=== PATIENT | female | born 1975 | race Caucasian/White ===

== ENCOUNTER 2018-01-08 16:01 | Inpatient (IN) | payer MEDICAID ==
--- NOTE | 2018-01-08 16:45 | ED Physician Chart ---
ED Chief Complaint/HPI - Patient Information Date Seen:: 01/08/18 Time Seen:: 16:30 Chief Complaint:: hemoptysis History of Present Illness:: Patient has had cough and blood-streaked sputum since last night. She filled up a Kleenex with blood last night and the hemoptysis is less today. No chills or fever. Allergies:: Allergies Allergy/AdvReac Type Severity Reaction Status Date / Time No Known Allergies Allergy Verified 01/08/18 16:11 Vitals:: Vital Signs - 8 hr 01/08/18 16:12 Temp 98.2 F HR 65 RR 16 BP 125/70 O2 Sat % 99 Historian:: Patient, Family Member Review:: Nurse's Note Reviewed ED Review of Systems - Review of Systems General/Constitutional: No fever, No chills Skin: No skin lesions Head: No headache Eyes: No loss of vision ENT: No earache Neck: No neck pain, No swelling Cardio Vascular: No chest pain, No palpitations Pulmonary: Sputum, Other (hemoptysis) GI: No nausea, No vomiting, No diarrhea G/U: No dysuria Musculoskeletal: No bone or joint pain Endocrine: No polyuria, No polydipsia Psychiatric: No prior psych history, No depression Hematopoietic: No bruising Allergic/Immuno: No urticaria Neurological: No syncope ED Physical Exam - Physical Examination General/Constitutional: Awake, Well-developed, well-nourished, Alert, No distress, GCS 15, Non-toxic appearing, Ambulatory Head: Atraumatic Eyes: Lids, conjuctiva normal, PERRL, EOMI Skin: Nl inspection, No rash, No skin lesions, No ecchymosis, Well hydrated, No lymphadenopathy ENMT: External ears, nose nl, Nasal exam nl, Lips, teeth, gums nl Neck: Nontender, Full ROM w/o pain, No JVD, No nuchal rigidity, No bruit, No mass, No stridor Respiratory: Nl effort/Exclusion, Clear to Auscultation, No Wheeze/Rhonchi/Rales Cardio Vascular: RRR, No murmur, gallop, rubs, NL S1 S2 GI: No tenderness/rebounding/guarding, No organomegaly, No hernia, Normal BS's, Nondistended, No mass/bruits, No McBurney tenderness : No CVA tenderness Extremities: No tenderness or effusion, Full ROM, normal strength in all extremities, No edema, Normal digits & nails Neuro/Psych: Alert/oriented, DTR's symmetric, Normal sensory exam, Normal motor strength, Judgement/insight normal, Mood normal, Normal gait, No focal deficits Misc: Normal back, No paraspinal tenderness ED Labs/Radiology/EKG Results - Lab Results Results: Abnormal Lab Results 01/08/18 01/08/18 16:30 16:50 WBC 4.9 RBC 4.91 Hgb 14.0 Hct 41.5 MCV 84.6 MCH 28.5 MCHC Differential 33.7 RDW 12.8 Plt Count 131 L MPV 8.5 Neutrophils % 52.2 Lymphocytes % 36.8 Monocytes % 9.0 Eosinophils % 1.9 Basophils % 0.1 Urine Test NEGATIVE Abnormal Lab Results 01/08/18 01/08/18 01/08/18 16:30 16:50 16:50 WBC 4.9 RBC 4.91 Hgb 14.0 Hct 41.5 MCV 84.6 MCH 28.5 MCHC Differential 33.7 RDW 12.8 Plt Count 131 L MPV 8.5 Neutrophils % 52.2 Lymphocytes % 36.8 Monocytes % 9.0 Eosinophils % 1.9 Basophils % 0.1 Sodium 139 Potassium 4.1 Chloride 105 Carbon Dioxide 26.3 Anion Gap 11.8 BUN 12 Creatinine 0.7 Est GFR ( Amer) > 60.0 Est GFR (Non-Af Amer) > 60.0 BUN/Creatinine Ratio 17.1 Glucose 109 H Calcium 9.8 Urine Test NEGATIVE ED Septic Shock - <6hrs of presentation: Vital Signs: Vital Signs - 8 hr 01/08/18 16:12 Temp 98.2 F HR 65 RR 16 BP 125/70 O2 Sat % 99
[2018-01-08 17:00] LABS: % BASOPHILS 0.1 % (0.0-2.0); % EOSINOPHILS 1.9 % (0.0-5.0); % LYMPHOCYTES 36.8 % (20.0-50.0); % NEUTROPHILS 52.2 % (40.0-80.0); EOSINOPHILE ABSOLUTE 0.1 Th/cmm (0.1-0.4); HEMATOCRIT 41.5 % (41.0-60); LYMPHOCYTE ABSOLUTE 1.8 Th/cmm (1.5-3.0); MEAN CELL VOLUME 84.6 fl (81-100); MEAN CORPUSCULAR HEMOGLOBIN 28.5 pg (27.0-31.0); MEAN CORPUSCULAR HGB CONC 33.7 pg (28.0-36.0); MEAN PLATELET VOLUME 8.5 fl; MONOCYTE ABSOLUTE 0.4 Th/cmm (0.3-1.0); NEUTROPHILE ABSOLUTE 2.6 Th/cmm (1.8-8.0); PLATELET COUNT 131 Th/cmm (150-400); RED BLOOD COUNT 4.91 Mil/cmm (3.80-5.10); RED CELL DISTRIBUTION WIDTH 12.8 % (11.5-20.0); WHITE BLOOD COUNT 4.9 Th/cmm (4.8-10.8)
[2018-01-08 17:40] LABS: ANION GAP 11.8 (7.0-16.0); BUN - UREA NITROGEN 12 mg/dL (7-25); CALCIUM SERUM 9.8 mg/dL (8.6-10.3); CARBON DIOXIDE 26.3 mEq/L (21.0-31.0); CHLORIDE 105 mEq/L (98-107); CREATININE - SERUM 0.7 mg/dL (0.6-1.2); GFR AFRICAN-AMERICAN > 60.0 ml/min (>90); GFR NON AFRICAN-AMERICAN > 60.0 ml/min; GLUCOSE 109 mg/dL (70-105); POTASSIUM SERUM 4.1 mEq/L (3.5-5.1); SODIUM SERUM 139 mEq/L (136-145)
[2018-01-08] MEDS ORDERED: Sodium Chloride 0.9% 1,000 ML IV ONE (17:54)
[2018-01-08] MEDS ORDERED: Azithromycin 500 MG in Sodium Chloride 0.9% 250 ML IV ONE (17:55)
[2018-01-08] MEDS ORDERED: cefTRIAXone 1 GM in Sodium Chloride 0.9% 50 ML IV ONE (17:55)
[2018-01-08] MEDS ORDERED: IOHEXOL 300mgI/mL 100 ML VIAL ONE (18:00)
[2018-01-08 18:19] LABS: PROTHROMBIN TIME (TEST) 10.4 SECONDS (9.5-11.5)
[2018-01-08] MEDS ORDERED: Guaifenesin DM 10 ML UDC PO PRN (20:07)
[2018-01-08 23:13] VITALS: BP 130/70
--- NOTE | 2018-01-09 08:24 | History and Physical ---
History of Present Illness - HPI Chief Complaint: Hemoptysis HPI: 42 y/o female who presents to [facility] ER for hemoptysis started since last night. Denies fever or chills. Patient has a previous history of Hep C+ Her initial chest xray revealed RLL pneumonia. Her initial labwork done in the ER revealed... WBC 4.9 H/H 14.0/41.5 platelets 131 Na 139 K 4.1 Bun/Cr 12/0.7 glu 109 Patient was subsequently admitted for furthe evaluation and treatment. Vital Signs: Last Vital Signs Temp 99.1 F 01/09/18 07:43 Pulse 75 01/09/18 07:43 Resp 17 01/09/18 07:43 BP 99/47 01/09/18 07:43 Pulse Ox 98 01/09/18 07:43 Past Medical History Cardiovascular: Report: No Pertinent Hx Pulmonary: Report: No Pertinent Hx PATIENT ACCESS DIRECTOR: Report: No Pertinent Hx GI: Report: No Pertinent Hx Psych: Report: No Pertinent Hx Musculoskeletal: Report: No Pertinent Hx Rheumatologic: Report: No pertinent Hx Infectious Disease: Report: Other (Hep C) Renal/: Report: No Pertinent Hx Endocrine: Report: No Pertinent Hx Dermatology: Report: No Pertinent Hx - Past Surgical History Past Surgical History: No pertinent Hx Family Medical History - Family Member Mother History Unknown: Yes Ethnicity: Social History Smoke: No Alcohol: None Drugs: None Lives: With Family - Medications Home Medications: Home Medication Medication Instructions Recorded Type NK [No Home Meds] 01/08/18 History - Allergies Allergies/Adverse Reactions: Allergies Allergy/AdvReac Type Severity Reaction Status Date / Time No Known Allergies Allergy Verified 01/08/18 16:11 Review of Systems - Review of Systems Constitutional: Report: No Significant Eyes: Report: No Significant ENT: Report: No Significant Respiratory: Report: Cough, Hemoptysis Cardiovascular: Report: No Significant Gastrointestinal: Report: No Significant Genitourinary: Report: No Significant Musculoskeletal: Report: No Significant Skin: Report: No Significant Neurological: Report: No Significant Physical Exam - Physical Exam HEENT: Report: Ears Nose Throat within normal limits, Pharnyx within normal limits Neck: Report: Within normal limits Cardiovascular Systems: Report: +s1/s2 noted, Regular, Rate and Rhythm Respiratory: Report: Breath Sounds are within normal limits Abdomen: Report: Non-tender to palpation. Denies: Tender to palpation Back: Report: Inspection of back is within normal limits. Extremities: Report: Non-tender to palpation. Skin: Report: Color of skin is within normal limits Neuro/Psych: Report: Mood affect is within normal limits, A+Ox3 - Lab Results All Lab Results last 24 hours: Laboratory Results - last 24 hr 01/08/18 01/08/18 01/08/18 16:30 16:50 16:50 WBC 4.9 RBC 4.91 Hgb 14.0 Hct 41.5 MCV 84.6 MCH 28.5 MCHC Differential 33.7 RDW 12.8 Plt Count 131 L MPV 8.5 Neutrophils % 52.2 Lymphocytes % 36.8 Monocytes % 9.0 Eosinophils % 1.9 Basophils % 0.1 PT 10.4 INR 1.00 PTT (Actin FS) 25.7 L Sodium Potassium Chloride Carbon Dioxide Anion Gap BUN Creatinine Est GFR ( Amer) Est GFR (Non-Af Amer) BUN/Creatinine Ratio Glucose Calcium Urine Test NEGATIVE 01/08/18 16:50 WBC RBC Hgb Hct MCV MCH MCHC Differential RDW Plt Count MPV Neutrophils % Lymphocytes % Monocytes % Eosinophils % Basophils % PT INR PTT (Actin FS) Sodium 139 Potassium 4.1 Chloride 105 Carbon Dioxide 26.3 Anion Gap 11.8 BUN 12 Creatinine 0.7 Est GFR ( Amer) > 60.0 Est GFR (Non-Af Amer) > 60.0 BUN/Creatinine Ratio 17.1 Glucose 109 H Calcium 9.8 Urine Test - Assessment Assessment: Current Active Problems Problem Status Onset COUGH WITH BLOOD STREAKED SPUTUM Acute hemoptysis RLL PNA Hep C+ - Plan Plan: continue IV Rocephin IV fluids CT chest pending repeat CBC,CMP Pulmonary consult.
--- NOTE | 2018-01-09 08:33 | Diagnostic Imaging Report ---
CT Chest with IV contrast HISTORY: Hemoptysis COMPARISON: Chest x-ray the same day. Technique: Axial images were obtained from the base of the neck to the upper abdomen following administration of IV contrast. Coronal reconstructions were made. Total DLP to 36, CTI 6 Findings: There is no evidence of mediastinal lymphadenopathy. The heart size is normal. No pericardial effusion identified. Evaluation of the lungs demonstrate extensive bronchiectasis involving the right lower lobe, greatest medially. A few tree-in-bud infiltrates are also seen primarily within the right lower lobe. No pleural effusions are identified. The upper abdomen demonstrates no acute abnormalities. Degenerative changes of the spine are noted. IMPRESSION: Extensive right lower lobe bronchiectasis and multiple tree in bud infiltrates. Findings favor an infectious/inflammatory process. JOSE GUADALUPE infection should be considered. Clinical correlation and correlation with old exams is recommended. Follow-up is also needed.
--- NOTE | 2018-01-09 08:46 | Diagnostic Imaging Report ---
CHEST X-RAY: 2 views INDICATION: Hemoptysis COMPARISON: None FINDINGS: Right medial lower lung zone infiltrates and likely bronchiectasis is noted. No effusions. Heart size is normal. Osseous structures are intact. IMPRESSION: Right medial lower lung zone infiltrates and likely bronchiectasis. Please refer to follow-up CT examination of the chest for further details.
[2018-01-09 09:15] LABS: % BASOPHILS 0.5 % (0.0-2.0); % EOSINOPHILS 1.3 % (0.0-5.0); % LYMPHOCYTES 29.2 % (20.0-50.0); % MONOCYTES 6.5 % (2.0-10.0); % NEUTROPHILS 62.5 % (40.0-80.0); EOSINOPHILE ABSOLUTE 0.1 Th/cmm (0.1-0.4); HEMATOCRIT 40.5 % (41.0-60); HEMOGLOBIN 13.9 gm/dL (12-16); LYMPHOCYTE ABSOLUTE 1.3 Th/cmm (1.5-3.0); MEAN CELL VOLUME 83.3 fl (81-100); MEAN CORPUSCULAR HEMOGLOBIN 28.6 pg (27.0-31.0); MEAN CORPUSCULAR HGB CONC 34.3 pg (28.0-36.0); MEAN PLATELET VOLUME 8.8 fl; MONOCYTE ABSOLUTE 0.3 Th/cmm (0.3-1.0); NEUTROPHILE ABSOLUTE 2.9 Th/cmm (1.8-8.0); PLATELET COUNT 125 Th/cmm (150-400); RED BLOOD COUNT 4.86 Mil/cmm (3.80-5.10); RED CELL DISTRIBUTION WIDTH 12.9 % (11.5-20.0); WHITE BLOOD COUNT 4.6 Th/cmm (4.8-10.8)
[2018-01-09 09:27] LABS: INR 1.06 (0.5-1.4)
[2018-01-09 09:34] LABS: ALB/GLOB RATIO 1.1 (1.0-1.8); ALBUMIN 3.9 gm/dL (3.7-5.3); ALKALINE PHOSPHATASE 127 U/L (34-104); ANION GAP 10.6 (7.0-16.0); BILIRUBIN,TOTAL 0.7 mg/dL (0.3-1.0); BUN - UREA NITROGEN 10 mg/dL (7-25); CALCIUM SERUM 9.8 mg/dL (8.6-10.3); CARBON DIOXIDE 28.9 mEq/L (21.0-31.0); CHLORIDE 101 mEq/L (98-107); CREATININE - SERUM 0.8 mg/dL (0.6-1.2); GFR AFRICAN-AMERICAN > 60.0 ml/min (>90); GFR NON AFRICAN-AMERICAN > 60.0 ml/min; GLUCOSE 182 mg/dL (70-105); POTASSIUM SERUM 3.5 mEq/L (3.5-5.1); SGOT 147 U/L (13-39); SGPT/ALT 163 U/L (7-52); SODIUM SERUM 137 mEq/L (136-145); TOTAL PROTEIN,SERUM 7.4 gm/dL (6.0-8.3)
[2018-01-09] MEDS ORDERED: Probiotic Screen MC PRN (13:20)
[2018-01-09] MEDS: cefTRIAXone 1 GM in Sodium Chloride 0.9% 50 ML IV SCH (19:32)
--- NOTE | 2018-01-10 05:18 | General Progress Note ---
Subjective - Review of Systems Service Date: 01/10/18 Subjective: Patient is awake, alert. afebrile. no acute distress. Resting comfortably in bed. For U/S abd today. NPO since midnight Objective - Results Result Diagrams: 01/09/18 08:55 01/09/18 08:55 Recent Labs: Laboratory Last Values WBC 4.6 Th/cmm (4.8-10.8) L 01/09/18 08:55 RBC 4.86 Mil/cmm (3.80-5.10) 01/09/18 08:55 Hgb 13.9 gm/dL (12-16) 01/09/18 08:55 Hct 40.5 % (41.0-60) L 01/09/18 08:55 MCV 83.3 fl (81-100) 01/09/18 08:55 MCH 28.6 pg (27.0-31.0) 01/09/18 08:55 MCHC Differential 34.3 pg (28.0-36.0) 01/09/18 08:55 RDW 12.9 % (11.5-20.0) 01/09/18 08:55 Plt Count 125 Th/cmm (150-400) L 01/09/18 08:55 MPV 8.8 fl 01/09/18 08:55 Neutrophils % 62.5 % (40.0-80.0) 01/09/18 08:55 Lymphocytes % 29.2 % (20.0-50.0) 01/09/18 08:55 Monocytes % 6.5 % (2.0-10.0) 01/09/18 08:55 Eosinophils % 1.3 % (0.0-5.0) 01/09/18 08:55 Basophils % 0.5 % (0.0-2.0) 01/09/18 08:55 PT 11.0 SECONDS (9.5-11.5) 01/09/18 08:55 INR 1.06 (0.5-1.4) 01/09/18 08:55 PTT (Actin FS) 25.7 SECONDS (26.0-38.0) L 01/08/18 16:50 D-Dimer < 100 ng/mL (100-400) L 01/09/18 15:01 Sodium 137 mEq/L (136-145) 01/09/18 08:55 Potassium 3.5 mEq/L (3.5-5.1) 01/09/18 08:55 Chloride 101 mEq/L (98-107) 01/09/18 08:55 Carbon Dioxide 28.9 mEq/L (21.0-31.0) 01/09/18 08:55 Anion Gap 10.6 (7.0-16.0) 01/09/18 08:55 BUN 10 mg/dL (7-25) 01/09/18 08:55 Creatinine 0.8 mg/dL (0.6-1.2) 01/09/18 08:55 Est GFR ( Amer) > 60.0 ml/min (>90) 01/09/18 08:55 Est GFR (Non-Af Amer) > 60.0 ml/min 01/09/18 08:55 BUN/Creatinine Ratio 12.5 01/09/18 08:55 Glucose 182 mg/dL (70-105) H 01/09/18 08:55 Calcium 9.8 mg/dL (8.6-10.3) 01/09/18 08:55 Total Bilirubin 0.7 mg/dL (0.3-1.0) 01/09/18 08:55 AST 147 U/L (13-39) H 01/09/18 08:55 ALT 163 U/L (7-52) H 01/09/18 08:55 Alkaline Phosphatase 127 U/L (34-104) H 01/09/18 08:55 Total Protein 7.4 gm/dL (6.0-8.3) 01/09/18 08:55 Albumin 3.9 gm/dL (3.7-5.3) 01/09/18 08:55 Globulin 3.5 gm/dL 01/09/18 08:55 Albumin/Globulin Ratio 1.1 (1.0-1.8) 01/09/18 08:55 Urine Test NEGATIVE 01/08/18 16:30 - Physical Exam Vitals and I&O: Vital Signs Temp 97 F 01/10/18 04:00 Pulse 65 01/10/18 04:00 Resp 18 01/10/18 04:00 BP 104/60 01/10/18 04:00 Pulse Ox 97 01/10/18 04:00 Intake & Output 01/09/18 01/09/18 01/10/18 06:59 18:59 06:59 Intake Total 620 460 Balance 620 460 Weight (lbs) 78.789 kg 78.471 kg Intake: Intake, IV Amount 350 Azithromycin 500 mg In 250 Sodium Chloride 0.9% 250 ml @ 250 mls/hr IV X1 [facility] Rx#:[id number] cefTRIAXone 1 gm In 100 Sodium Chloride 0.9% 50 ml @ 100 mls/hr IV Q24HR [facility] Rx#:[id number] Oral 270 460 Other: # Voids 2 3 # Bowel Movements 0 0 Weight Source Bedscale Bedscale Active Medications: Current Medications Guaifenesin/Dextromethorphan (Robitussin Dm) 10 ml PO Q6HR PRN PRN Reason: Cough Stop: 03/09/18 20:06 Ceftriaxone Sodium 1 gm/ (Sodium Chloride) 50 mls @ 100 mls/hr IV Q24HR [facility] Stop: 03/10/18 17:59 Last Admin: 01/09/18 19:32 Dose: 100 mls/hr Lactobacillus Rhamnosus (Culturelle 15b) 1 each PO DAILY [facility] Stop: 03/11/18 08:59 Miscellaneous (Probiotic Screen) 1 ea MC PRN PRN PRN Reason: PROTOCOL Stop: 03/10/18 13:19 General: Alert, No acute distress HEENT: Atraumatic, PERRLA, EOMI Neck: Supple Cardiovascular: Regular rate, Normal S1, Normal S2 Lungs: Clear to auscultation Abdomen: Bowel sounds Extremities: no Clubbing, no Cyanosis Neurological: Normal gait, Normal speech Assessment/Plan - Problem List Patient Problems: All Active Problems COUGH WITH BLOOD STREAKED SPUTUM (Acute) - Assessment Assessment: Current Active Problems Problem Status Onset COUGH WITH BLOOD STREAKED SPUTUM Acute hemoptysis RLL PNA Hep C+ - Plan Plan: continue IV Rocephin IV fluids CT chest pending repeat CBC,CMP Pulmonary consult. U/S abd Sputum cultures
[2018-01-10 08:08] LABS: IRON LC 68 ug/dL (27-159); TIBC (LC) 406 ug/dL (250-450); UIBC 338 ug/dL (131-425)
[2018-01-10] MEDS: Lactobacillus Rhamnosus GG 15 Billion CFU CAP.SPRINK PO SCH (09:26)
[2018-01-10 12:10] LABS: HEP A AB IGM Negative (Negative); HEP B CORE IGM Negative (Negative); HEP B SURFACE AG QL Negative (Negative); HEP C ANTIBODY >11.0 s/co ratio (0.0-0.9)
[2018-01-10] MEDS: cefTRIAXone 1 GM in Sodium Chloride 0.9% 50 ML IV SCH (17:14)
--- NOTE | 2018-01-10 17:41 | Consultation ---
DATE OF CONSULTATION: 01/09/[address] Miranda. Thank you very much for this consultation. HISTORY OF PRESENT ILLNESS: This is a 42-year-old female, who presented with cough for a few days and coughed up a small amount of blood couple of days ago and today. 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 The patient has underlying history of asthma. Denies any fever or chills. No chest pain. No history of TB exposure. No weight loss, no night sweats. The patient is doing better since admission. PAST MEDICAL HISTORY: As above. SOCIAL HISTORY: No history of smoking, drinking, drug use. PHYSICAL EXAMINATION: GENERAL: Awake, alert, not in acute distress. VITAL SIGNS: Temperature is 99.1, pulse is 70, respirations is 18, blood pressure is 116/69, saturation is 98%. HEENT: Atraumatic, normocephalic. Pupils react to light and accommodation. Ears, nose and throat are normal. NECK: Supple. No JVD. CHEST: There is breath sounds, few rhonchi. No wheezing. HEART: Regular rate and rhythm. ABDOMEN: Soft. EXTREMITIES: Lower extremities, no edema. IMAGING: CT of chest shows right lower lobe scarring infiltrate and bronchiectasis, which seems to be localized in the right lower lobe area. LABORATORY DATA: WBC is 4.9, hemoglobin is 14.0, platelets 131. Sodium is 139, potassium is 4.1, BUN is 12, creatinine is 0.7. IMPRESSION: This is a 42-year-old female with what appears to be a pneumonia and an acute infection on the top of underlying bronchiectatic area. Superimposed infection, probably the mild hemoptysis related to bronchiectasis area. PLAN: 1. Continue IV antibiotics. 2. Nebulizer treatment. 3. Pulmonary toilet. 4. Follow up chest x-ray. 5. Do D-dimers. 6. Follow the patient with you. Thank you very much for this consultation JOB# [id number]
--- NOTE | 2018-01-11 06:06 | General Progress Note ---
Subjective - Review of Systems Service Date: 01/11/18 Subjective: Patient is awake, alert. afebrile. no acute distress. Resting comfortably in bed. Objective - Results Result Diagrams: 01/09/18 08:55 01/09/18 08:55 Recent Labs: Laboratory Last Values WBC 4.6 Th/cmm (4.8-10.8) L 01/09/18 08:55 RBC 4.86 Mil/cmm (3.80-5.10) 01/09/18 08:55 Hgb 13.9 gm/dL (12-16) 01/09/18 08:55 Hct 40.5 % (41.0-60) L 01/09/18 08:55 MCV 83.3 fl (81-100) 01/09/18 08:55 MCH 28.6 pg (27.0-31.0) 01/09/18 08:55 MCHC Differential 34.3 pg (28.0-36.0) 01/09/18 08:55 RDW 12.9 % (11.5-20.0) 01/09/18 08:55 Plt Count 125 Th/cmm (150-400) L 01/09/18 08:55 MPV 8.8 fl 01/09/18 08:55 Neutrophils % 62.5 % (40.0-80.0) 01/09/18 08:55 Lymphocytes % 29.2 % (20.0-50.0) 01/09/18 08:55 Monocytes % 6.5 % (2.0-10.0) 01/09/18 08:55 Eosinophils % 1.3 % (0.0-5.0) 01/09/18 08:55 Basophils % 0.5 % (0.0-2.0) 01/09/18 08:55 PT 11.0 SECONDS (9.5-11.5) 01/09/18 08:55 INR 1.06 (0.5-1.4) 01/09/18 08:55 PTT (Actin FS) 25.7 SECONDS (26.0-38.0) L 01/08/18 16:50 D-Dimer < 100 ng/mL (100-400) L 01/09/18 15:01 Sodium 137 mEq/L (136-145) 01/09/18 08:55 Potassium 3.5 mEq/L (3.5-5.1) 01/09/18 08:55 Chloride 101 mEq/L (98-107) 01/09/18 08:55 Carbon Dioxide 28.9 mEq/L (21.0-31.0) 01/09/18 08:55 Anion Gap 10.6 (7.0-16.0) 01/09/18 08:55 BUN 10 mg/dL (7-25) 01/09/18 08:55 Creatinine 0.8 mg/dL (0.6-1.2) 01/09/18 08:55 Est GFR ( Amer) > 60.0 ml/min (>90) 01/09/18 08:55 Est GFR (Non-Af Amer) > 60.0 ml/min 01/09/18 08:55 BUN/Creatinine Ratio 12.5 01/09/18 08:55 Glucose 182 mg/dL (70-105) H 01/09/18 08:55 Calcium 9.8 mg/dL (8.6-10.3) 01/09/18 08:55 Iron 68 ug/dL (27-159) 01/09/18 15:01 TIBC 406 ug/dL (250-450) 01/09/18 15:01 Iron Saturation 17 % (15-55) 01/09/18 15:01 Unsaturated IBC 338 ug/dL (131-425) 01/09/18 15:01 Ferritin 99 ng/mL (15-150) 01/09/18 15:01 Total Bilirubin 0.7 mg/dL (0.3-1.0) 01/09/18 08:55 AST 147 U/L (13-39) H 01/09/18 08:55 ALT 163 U/L (7-52) H 01/09/18 08:55 Alkaline Phosphatase 127 U/L (34-104) H 01/09/18 08:55 Total Protein 7.4 gm/dL (6.0-8.3) 01/09/18 08:55 Albumin 3.9 gm/dL (3.7-5.3) 01/09/18 08:55 Globulin 3.5 gm/dL 01/09/18 08:55 Albumin/Globulin Ratio 1.1 (1.0-1.8) 01/09/18 08:55 Tumor Marker AFP 8.9 ng/mL (0.0-8.3) H 01/09/18 15:01 Urine Test NEGATIVE 01/08/18 16:30 Hepatitis A IgM Ab Negative (Negative) 01/09/18 08:55 Hep Bs Antigen Negative (Negative) 01/09/18 08:55 Hep B Core IgM Ab Negative (Negative) 01/09/18 08:55 Hepatitis C Antibody >11.0 s/co ratio (0.0-0.9) H 01/09/18 08:55 - Physical Exam Vitals and I&O: Vital Signs Temp 97.7 F 01/11/18 05:04 Pulse 68 01/11/18 05:04 Resp 20 01/11/18 05:04 BP 104/59 01/11/18 05:04 Pulse Ox 100 01/11/18 05:04 Intake & Output 01/10/18 01/10/18 01/11/18 06:59 18:59 06:59 Intake Total 50 50 550 Balance 50 50 550 Weight (lbs) 79.061 kg 78.063 kg Intake: Intake, IV Amount 50 50 cefTRIAXone 1 gm In 50 50 Sodium Chloride 0.9% 50 ml @ 100 mls/hr IV Q24HR [facility] Rx#:[id number] Oral 50 500 Other: # Voids 3 3 # Bowel Movements 0 Weight Source Bedscale Standing scale Active Medications: Current Medications Guaifenesin/Dextromethorphan (Robitussin Dm) 10 ml PO Q6HR PRN PRN Reason: Cough Stop: 03/09/18 20:06 Ceftriaxone Sodium 1 gm/ (Sodium Chloride) 50 mls @ 100 mls/hr IV Q24HR [facility] Stop: 03/10/18 17:59 Last Infusion: 01/10/18 19:29 Dose: Infused Lactobacillus Rhamnosus (Culturelle 15b) 1 each PO DAILY [facility] Stop: 03/11/18 08:59 Last Admin: 01/10/18 09:26 Dose: 1 each Miscellaneous (Probiotic Screen) 1 ea PRN PRN PRN Reason: PROTOCOL Stop: 03/10/18 13:19 General: Alert, No acute distress HEENT: Atraumatic, PERRLA, EOMI Neck: Supple Cardiovascular: Regular rate, Normal S1, Normal S2 Lungs: Clear to auscultation Abdomen: Bowel sounds Extremities: no Clubbing, no Cyanosis Neurological: Normal gait, Normal speech Assessment/Plan - Problem List Patient Problems: All Active Problems COUGH WITH BLOOD STREAKED SPUTUM (Acute) - Assessment Assessment: Current Active Problems Problem Status Onset COUGH WITH BLOOD STREAKED SPUTUM Acute hemoptysis RLL PNA Hep C+ - Plan Plan: dc home f/u with regular physician Augmentin 500mg Po TID X 10days
--- NOTE | 2018-01-11 08:25 | Consultation ---
DATE OF CONSULTATION: 01/10/2018 GASTROENTEROLOGY CONSULTATION REQUESTING PHYSICIAN: Dr. Milton Miranda REASON FOR CONSULTATION: Abnormal liver enzymes. HISTORY OF PRESENT ILLNESS: A 42-year-old female with chronic hepatitis C, acquired with a blood transfusion at the age of 1. The patient received treatment 5 years ago, but the virus may have been suppressed temporarily, but then recurred. She is following up with [facility] in [place] for further evaluation and treatment. The patient was admitted for hemoptysis and is currently undergoing workup for this. PAST MEDICAL HISTORY: As above. MEDICATIONS: Here are Rocephin, Robitussin, and lactobacillus. ALLERGIES: None. SOCIAL HISTORY: No known tobacco, alcohol, or drugs. FAMILY HISTORY: Noncontributory. REVIEW OF SYSTEMS: Negative. PHYSICAL EXAMINATION: VITAL SIGNS: Temperature of 98.2, blood pressure is 92/49, pulse is 66, respirations 18, and O2 sat 97%. GENERAL: The patient is well-developed, well-nourished female in no acute distress. HEENT: Sclerae nonicteric. Oropharynx is clear. CARDIOVASCULAR: Regular rate and rhythm. LUNGS: Clear to auscultation bilaterally. ABDOMEN: Soft, nontender, nondistended, normoactive bowel sounds. No hepatosplenomegaly is appreciated. EXTREMITIES: No clubbing, cyanosis or edema. RECTAL: Deferred. LABORATORY AND IMAGING DATA: WBC 4.9, hemoglobin 14, platelet count is 131, yesterday was 125. INR is 1.0. Bilirubin 0.7, AST 147, ALT 163, alkaline phosphatase 127, albumin 3.9. Urine test is negative. IMPRESSION: 1. Hepatitis C, likely acquired from blood transfusion 41 year ago, status post perhaps partial treatment with incomplete eradication in the past. There could be other concomitant sources of abnormal liver enzymes including sepsis, medications, etc. 2. Hemoptysis with CT showing possible pneumonia or infiltrate pending further workup. RECOMMENDATIONS: 1. For the pulmonary care as per Pulmonology. 2. Check abdominal ultrasound. 3. Check other liver labs to rule out other liver disease except hepatitis C. 4. Consider [facility]ology Clinic followup as an outpatient for further assessment and treatment of her chronic hepatitis C. New antiviral regimens have come out in the last 1-2 years with eradication rates anywhere between 95-100%, one of these should be considered for the patient as an outpatient. Further workup here regarding her hepatitis C is likely unnecessary and expensive. Thank you, Dr. Milton Miranda for involving us in the care of your patient. If you have any further questions, please call us. JOB# [id number]
[2018-01-11] MEDS: Lactobacillus Rhamnosus GG 15 Billion CFU CAP.SPRINK PO SCH (08:28)
[2018-01-11 08:38] LABS: ALB/GLOB RATIO 1.1 (1.0-1.8); ALKALINE PHOSPHATASE 123 U/L (34-104); ANION GAP 11.2 (7.0-16.0); BILIRUBIN,TOTAL 0.4 mg/dL (0.3-1.0); BUN - UREA NITROGEN 15 mg/dL (7-25); CALCIUM SERUM 9.9 mg/dL (8.6-10.3); CARBON DIOXIDE 24.8 mEq/L (21.0-31.0); CHLORIDE 105 mEq/L (98-107); CREATININE - SERUM 0.7 mg/dL (0.6-1.2); GFR AFRICAN-AMERICAN > 60.0 ml/min (>90); GFR NON AFRICAN-AMERICAN > 60.0 ml/min; GLUCOSE 98 mg/dL (70-105); SGOT 161 U/L (13-39); SGPT/ALT 175 U/L (7-52); SODIUM SERUM 137 mEq/L (136-145); TOTAL PROTEIN,SERUM 7.7 gm/dL (6.0-8.3)
--- NOTE | 2018-01-11 08:41 | GI Progress Note ---
Subjective - Review of Systems Service Date: 01/11/18 Subjective: NO COMPLAINTS. Objective - Results Result Diagrams: 01/09/18 08:55 01/09/18 08:55 Recent Labs: Laboratory Last Values WBC 4.6 Th/cmm (4.8-10.8) L 01/09/18 08:55 RBC 4.86 Mil/cmm (3.80-5.10) 01/09/18 08:55 Hgb 13.9 gm/dL (12-16) 01/09/18 08:55 Hct 40.5 % (41.0-60) L 01/09/18 08:55 MCV 83.3 fl (81-100) 01/09/18 08:55 MCH 28.6 pg (27.0-31.0) 01/09/18 08:55 MCHC Differential 34.3 pg (28.0-36.0) 01/09/18 08:55 RDW 12.9 % (11.5-20.0) 01/09/18 08:55 Plt Count 125 Th/cmm (150-400) L 01/09/18 08:55 MPV 8.8 fl 01/09/18 08:55 Neutrophils % 62.5 % (40.0-80.0) 01/09/18 08:55 Lymphocytes % 29.2 % (20.0-50.0) 01/09/18 08:55 Monocytes % 6.5 % (2.0-10.0) 01/09/18 08:55 Eosinophils % 1.3 % (0.0-5.0) 01/09/18 08:55 Basophils % 0.5 % (0.0-2.0) 01/09/18 08:55 PT 11.0 SECONDS (9.5-11.5) 01/09/18 08:55 INR 1.06 (0.5-1.4) 01/09/18 08:55 PTT (Actin FS) 25.7 SECONDS (26.0-38.0) L 01/08/18 16:50 D-Dimer < 100 ng/mL (100-400) L 01/09/18 15:01 Sodium 137 mEq/L (136-145) 01/09/18 08:55 Potassium 3.5 mEq/L (3.5-5.1) 01/09/18 08:55 Chloride 101 mEq/L (98-107) 01/09/18 08:55 Carbon Dioxide 28.9 mEq/L (21.0-31.0) 01/09/18 08:55 Anion Gap 10.6 (7.0-16.0) 01/09/18 08:55 BUN 10 mg/dL (7-25) 01/09/18 08:55 Creatinine 0.8 mg/dL (0.6-1.2) 01/09/18 08:55 Est GFR ( Amer) > 60.0 ml/min (>90) 01/09/18 08:55 Est GFR (Non-Af Amer) > 60.0 ml/min 01/09/18 08:55 BUN/Creatinine Ratio 12.5 01/09/18 08:55 Glucose 182 mg/dL (70-105) H 01/09/18 08:55 Calcium 9.8 mg/dL (8.6-10.3) 01/09/18 08:55 Iron 68 ug/dL (27-159) 01/09/18 15:01 TIBC 406 ug/dL (250-450) 01/09/18 15:01 Iron Saturation 17 % (15-55) 01/09/18 15:01 Unsaturated IBC 338 ug/dL (131-425) 01/09/18 15:01 Ferritin 99 ng/mL (15-150) 01/09/18 15:01 Total Bilirubin 0.7 mg/dL (0.3-1.0) 01/09/18 08:55 AST 147 U/L (13-39) H 01/09/18 08:55 ALT 163 U/L (7-52) H 01/09/18 08:55 Alkaline Phosphatase 127 U/L (34-104) H 01/09/18 08:55 Total Protein 7.4 gm/dL (6.0-8.3) 01/09/18 08:55 Albumin 3.9 gm/dL (3.7-5.3) 01/09/18 08:55 Globulin 3.5 gm/dL 01/09/18 08:55 Albumin/Globulin Ratio 1.1 (1.0-1.8) 01/09/18 08:55 Tumor Marker AFP 8.9 ng/mL (0.0-8.3) H 01/09/18 15:01 Urine Test NEGATIVE 01/08/18 16:30 Hepatitis A IgM Ab Negative (Negative) 01/09/18 08:55 Hep Bs Antigen Negative (Negative) 01/09/18 08:55 Hep B Core IgM Ab Negative (Negative) 01/09/18 08:55 Hepatitis C Antibody >11.0 s/co ratio (0.0-0.9) H 01/09/18 08:55 - Physical Exam Vitals and I&O: Vital Signs Temp 97.7 F 01/11/18 05:04 Pulse 68 01/11/18 05:04 Resp 16 01/11/18 08:00 BP 104/59 01/11/18 05:04 Pulse Ox 100 01/11/18 05:04 Intake & Output 01/10/18 01/11/18 01/11/18 18:59 06:59 18:59 Intake Total 50 550 Balance 50 550 Weight (lbs) 79.061 kg 78.063 kg Intake: Intake, IV Amount 50 cefTRIAXone 1 gm In 50 Sodium Chloride 0.9% 50 ml @ 100 mls/hr IV Q24HR [facility] Rx#:[id number] Oral 50 500 Other: # Voids 3 3 # Bowel Movements 0 Weight Source Bedscale Standing scale Active Medications: Current Medications Guaifenesin/Dextromethorphan (Robitussin Dm) 10 ml PO Q6HR PRN PRN Reason: Cough Stop: 03/09/18 20:06 Ceftriaxone Sodium 1 gm/ (Sodium Chloride) 50 mls @ 100 mls/hr IV Q24HR FILI Stop: 03/10/18 17:59 Last Infusion: 01/10/18 19:29 Dose: Infused Lactobacillus Rhamnosus (Culturelle 15b) 1 each PO DAILY FILI Stop: 03/11/18 08:59 Last Admin: 01/11/18 08:28 Dose: 1 each Miscellaneous (Probiotic Screen) 1 ea MC PRN PRN PRN Reason: PROTOCOL Stop: 03/10/18 13:19 General: Alert, No acute distress HEENT: Atraumatic Neck: Supple Cardiovascular: Regular rate Abdomen: Bowel sounds Extremities: Clubbing, Cyanosis Assessment/Plan - Problem List Patient Problems: All Active Problems COUGH WITH BLOOD STREAKED SPUTUM (Acute) - Assessment Assessment: IMPRESSION: 1. ELEVATED LFT'S LIKELY DUE TO CHRONIC HEP C - FAILED TX IN THE PAST. 2. HEMOPTYSIS. RECS: 1. F/U LIVER LABS AND ABD US RESULTS. 2. HAS F/U WITH LIVER CLINIC IN [place]. 3. NO FURTHER HEP C W/U OR TX NEEDED WHILE HERE. GI ROBBINS STABLE.
--- NOTE | 2018-01-11 10:00 | Diagnostic Imaging Report ---
Abdominal ultrasound HISTORY: Hepatitis The liver appears slightly increased in size. No focal lesions. The gallbladder appears normal. No calculi are seen. No biliary dilatation. The pancreas cannot be seen due to bowel gas. The kidneys appear normal bilaterally. The spleen is normal in size. No other retroperitoneal or intra-abdominal abnormalities. IMPRESSION: 1. Somewhat generous hepatic size. 2. No other significant abnormalities
--- NOTE | 2018-01-14 12:14 | Discharge Summary ---
DATE OF DISCHARGE: 01/11/2018 PRELIMINARY DIAGNOSES: 1. Hemoptysis. 2. Right lower lobe pneumonia. 3. Hepatitis C. DISCHARGE DIAGNOSES: 1. Right lower lobe pneumonia, stable. 2. History of hepatitis C. 3. Hemoptysis, now resolved. BRIEF HISTORY OF PRESENT ILLNESS: This is a 42-year-old female who presents to [facility] ER with a 1-day history of hemoptysis started last night prior to admission. The patient denies any fever or chills, but does admit to history of hepatitis C. Her initial chest x-ray revealed right lower lobe pneumonia. Initial lab work done in the ER revealed a normal white count of 4.9, hemoglobin of 14.0, hematocrit 41.5, platelets 131,000. Sodium was 139, potassium 4.1, BUN and creatinine 12/0.7, glucose was 109. The patient was subsequently admitted for further evaluation and treatment. HOSPITAL COURSE: The patient improved during her hospital stay, was seen and evaluated by Pulmonary, see dictated report as well as GI, see dictated report. Ultrasound of the abdomen was done during her hospital stay, which did not show any significant abnormalities. The patient had a sputum culture during her hospital stay, which revealed normal arturo. No bacteria. Urine culture and blood cultures were also done, which showed no growth as well as screening of the nares showed no MRSA. The patient was subsequently discharged in stable condition, given a course of antibiotics to take and was told to follow up with her regular physician in 2-3 days. [facility]# [id number]
== END 2018-01-11 10:07 | disposition home or self-care (01) | DRG 139 ==
LOC: ER 16:01 → MSI 17:55
PROVIDERS: ADMIT Family Medicine; ATTEND Family Medicine
DX: J18.1 Lobar pneumonia, unspecified organism (principal); R04.2 Hemoptysis; B18.2 Chronic viral hepatitis C
CPT/HCPCS: 36415-UA; 71046-TC; 71260-TC; 76700-TC; 80048-TC; 80053-TC; 80074-90; 81025-TC; 82103-90; 82105-90; 82390-90; 82728-90; 83036-90; 83540-90; 83550-90; 85025-TC; 85379-TC; 85610-TC; 85730-TC; 86255-90; 87070; J0456; J0696; J7030; Q9967

== ENCOUNTER 2018-01-15 09:17 | Emergency (ER) | payer MEDICAID ==
--- NOTE | 2018-01-15 09:43 | ED Physician Chart ---
ED Chief Complaint/HPI - Patient Information Date Seen:: 01/15/18 Time Seen:: 09:30 Chief Complaint:: right-sided neck pain History of Present Illness:: Patient awoke this morning with right lateral neck pain. No trauma. Patient discharged from this hospital 3 days ago after being admitted one week ago for pneumonia. Allergies:: Allergies Allergy/AdvReac Type Severity Reaction Status Date / Time No Known Allergies Allergy Verified 01/15/18 09:34 Vitals:: Vital Signs - 8 hr 01/15/18 09:24 Temp 98.4 F HR 73 RR 18 BP 137/87 Historian:: Patient, Family Member ED Review of Systems - Review of Systems General/Constitutional: No fever, No chills Skin: No skin lesions Head: No headache Eyes: No loss of vision ENT: No earache Neck: No neck pain Cardio Vascular: No chest pain, No palpitations Pulmonary: No SOB GI: No nausea, No vomiting, No diarrhea G/U: No dysuria Musculoskeletal: Muscle pain Endocrine: No polyuria Psychiatric: No prior psych history Hematopoietic: No bruising Allergic/Immuno: No urticaria Neurological: No syncope, No focal symptoms ED Past Medical History - Past Medical History Past Medical History: Other (hepatitis C) Family History: None Social History: Non Smoker, No Alcohol Surgical History: None Psychiatricy History: None Medication: Reviewed Family Medical History - Family Member Mother History Unknown: Yes Ethnicity: ED Physical Exam - Physical Examination General/Constitutional: Well-developed, well-nourished, Alert Head: Atraumatic Eyes: Lids, conjuctiva normal, PERRL Skin: Nl inspection, No rash, No skin lesions, No ecchymosis ENMT: External ears, nose nl, TM canals nl, Nasal exam nl, Lips, teeth, gums nl , Oropharynx nl Other Neck comments:: Maintains head motionless with about 2-3 of left rotation of her neck. Respiratory: Nl effort/Exclusion, Clear to Auscultation Cardio Vascular: RRR, No murmur, gallop, rubs, NL S1 S2 GI: No tenderness/rebounding/guarding : No CVA tenderness Extremities: Normal digits & nails Neuro/Psych: No focal deficits Other Neuro/Psych comments:: Slightly decreased equal hand grasp Misc: Normal back ED Assessment - Assessment General Assessment: Patient has torticollis. Limited cervical spine x-rays were negative. Patient to be given a soft cervical collar and a prescription for ibuprofen 400 mg #20 to take 1 3 times a day. ED Septic Shock - . Is Septic Shock (SBP<90, OR Lactate>4 mmol\L) present?: No - <6hrs of presentation: Vital Signs: Vital Signs - 8 hr 01/15/18 09:24 Temp 98.4 F HR 73 RR 18 BP 137/87 ED Reassessment (Disposition) - Reassessment Reassessment Condition:: Unchanged - Diagnosis Diagnosis:: Torticollis - Aftercare/Follow up Instructions Aftercare/Follow-Up Instructions:: Refer to Discharge Instructions - Patient Disposition Discharge/Transfer:: Home Condition at Disposition:: Stable, Unchanged
--- NOTE | 2018-01-16 08:45 | Diagnostic Imaging Report ---
Exam: Cervical spine Neck pain. Findings: Multiple views of the cervical spine reviewed. The study is limited. Due to patient due to cooperate. The study grossly demonstrate no evidence of fracture dislocation. The odontoid process is intact. Lower cervical vertebrae poorly visualized. IMPRESSION: Normal limited examination cervical spine.
== END 2018-01-15 10:44 | disposition home or self-care (01) ==
LOC: ER 09:17
DX: M43.6 Torticollis (principal)
CPT/HCPCS: 99283; 96372; 72040; 81025; J1885; Z7502

== ENCOUNTER 2018-06-16 00:22 | Emergency (ER) | payer MEDICAID ==
--- NOTE | 2018-06-16 01:15 | ED Physician Chart ---
ED Chief Complaint/HPI - Patient Information Date Seen:: 06/16/18 Time Seen:: 01:05 Chief Complaint:: cough History of Present Illness:: 42 yr old female with hx of hepc with cough congestion for few days with coughing blood Allergies:: Allergies Allergy/AdvReac Type Severity Reaction Status Date / Time No Known Allergies Allergy Verified 01/15/18 09:34 Vitals:: Vital Signs - 8 hr 06/16/18 00:33 Temp 98.9 F HR 89 RR 16 BP 136/71 O2 Sat % 98 ED Review of Systems - Review of Systems General/Constitutional: No fever, No chills, No weight loss, No weakness, No diaphoresis, No edema, No loss of appetite Skin: No skin lesions, No rash, No bruising Head: No headache, No light-headedness Eyes: No loss of vision, No pain, No diplopia ENT: No earache, No nasal drainage, No sore throat, No tinnitus Neck: No neck pain, No swelling, No thyromegaly, No stiffness, No mass noted Cardio Vascular: No chest pain, No palpitations, No PND, No orthopnea, No edema Pulmonary: Cough, Sputum GI: No nausea, No vomiting, No diarrhea, No pain, No melena, No hematochezia, No constipation, No hematemesis G/U: No dysuria, No frequency, No hematuria Musculoskeletal: No bone or joint pain, No back pain, No muscle pain Endocrine: No polyuria, No polydipsia Psychiatric: No prior psych history, No depression, No anxiety, No suicidal ideation Hematopoietic: No bruising, No lymphadenopathy Allergic/Immuno: No urticaria, No angioedema Neurological: No syncope, No focal symptoms, No weakness, No paresthesia, No headache, No seizure, No dizziness, No confusion, No vertigo ED Past Medical History - Past Medical History Past Medical History: Other (hepatitis c) Family Medical History - Family Member Mother History Unknown: Yes Ethnicity: ED Physical Exam - Physical Examination General/Constitutional: Awake, Well-developed, well-nourished, Alert, No distress, GCS 15, Non-toxic appearing, Ambulatory Head: Atraumatic Eyes: Lids, conjuctiva normal, PERRL, EOMI Skin: Nl inspection, No rash, No skin lesions, No ecchymosis, Well hydrated, No lymphadenopathy ENMT: External ears, nose nl, Nasal exam nl, Lips, teeth, gums nl Neck: Nontender, Full ROM w/o pain, No JVD, No nuchal rigidity, No bruit, No mass, No stridor Respiratory: Nl effort/Exclusion, Clear to Auscultation, No Wheeze/Rhonchi/Rales Cardio Vascular: RRR, No murmur, gallop, rubs, NL S1 S2 GI: No tenderness/rebounding/guarding, No organomegaly, No hernia, Normal BS's, Nondistended, No mass/bruits, No McBurney tenderness : No CVA tenderness Extremities: No tenderness or effusion, Full ROM, normal strength in all extremities, No edema, Normal digits & nails Neuro/Psych: Alert/oriented, DTR's symmetric, Normal sensory exam, Normal motor strength, Judgement/insight normal, Mood normal, Normal gait, No focal deficits Misc: Normal back, No paraspinal tenderness ED Assessment - Assessment General Assessment: cough mild hemoptysis ED Septic Shock - . Is Septic Shock (SBP<90, OR Lactate>4 mmol\L) present?: No - <6hrs of presentation: Vital Signs: Vital Signs - 8 hr 06/16/18 00:33 Temp 98.9 F HR 89 RR 16 BP 136/71 O2 Sat % 98 ED Reassessment (Disposition) - Reassessment Reassessment:: cough hemopytsis - Diagnosis Diagnosis:: as above - Aftercare/Follow up Instructions Aftercare/Follow-Up Instructions:: Counseled pt regarding lab results/diagnosis & need follow up Medication Prescribed:: zkristy phenergan dm - Patient Disposition Discharge/Transfer:: Home Condition at Disposition:: Stable
[2018-06-16 02:06] LABS: URINE SOURCE RANDOM
[2018-06-16 02:07] LABS: % BASOPHILS 0.5 % (0.0-2.0); % EOSINOPHILS 2.6 % (0.0-5.0); % LYMPHOCYTES 30.2 % (20.0-50.0); % MONOCYTES 8.3 % (2.0-10.0); % NEUTROPHILS 58.4 % (40.0-80.0); EOSINOPHILE ABSOLUTE 0.2 Th/cmm (0.1-0.4); HEMATOCRIT 41.8 % (41.0-60); HEMOGLOBIN 13.8 gm/dL (12-16); LYMPHOCYTE ABSOLUTE 2.3 Th/cmm (1.5-3.0); MEAN CELL VOLUME 84.6 fl (81-100); MEAN CORPUSCULAR HEMOGLOBIN 27.9 pg (27.0-31.0); MEAN PLATELET VOLUME 8.3 fl; MONOCYTE ABSOLUTE 0.6 Th/cmm (0.3-1.0); NEUTROPHILE ABSOLUTE 4.5 Th/cmm (1.8-8.0); PLATELET COUNT 152 Th/cmm (150-400); RED BLOOD COUNT 4.94 Mil/cmm (3.80-5.10); RED CELL DISTRIBUTION WIDTH 12.4 % (11.5-20.0); WHITE BLOOD COUNT 7.6 Th/cmm (4.8-10.8)
[2018-06-16 02:07] LABS: URINE BILIRUBIN NEGATIVE (NEGATIVE); URINE BLOOD TRACE (NEGATIVE); URINE GLUCOSE (UA) NEGATIVE (NEGATIVE); URINE KETONE NEGATIVE (NEGATIVE); URINE LEUKOCYTE ESTERASE NEGATIVE (NEGATIVE); URINE MICROSCOPIC INDICATED? YES; URINE NITRATE NEGATIVE (NEGATIVE); URINE PROTEIN NEGATIVE (NEGATIVE); URINE UROBILINOGEN 0.2 E.U./dL (0.2 - 1.0)
[2018-06-16 02:11] LABS: URINE CLARITY HAZY (CLEAR); URINE COLOR YELLOW
[2018-06-16 02:15] LABS: URINE EPITHELIAL CELLS FEW /lpf (FEW); URINE RBC 0-2 /hpf (0-5); URINE WBC 0-2 /hpf (0-5)
[2018-06-16 02:16] LABS: URINE BACTERIA FEW /hpf (NONE SEEN)
[2018-06-16 02:23] LABS: ALB/GLOB RATIO 1.2 (1.0-1.8); ALBUMIN 4.3 gm/dL (3.7-5.3); ALKALINE PHOSPHATASE 151 U/L (34-104); ANION GAP 11.9 (7.0-16.0); BILIRUBIN,TOTAL 0.4 mg/dL (0.3-1.0); BUN - UREA NITROGEN 14 mg/dL (7-25); CALCIUM SERUM 9.9 mg/dL (8.6-10.3); CARBON DIOXIDE 27.4 mEq/L (21.0-31.0); CHLORIDE 104 mEq/L (98-107); CREATININE - SERUM 0.8 mg/dL (0.6-1.2); GFR AFRICAN-AMERICAN > 60.0 ml/min (>90); GFR NON AFRICAN-AMERICAN > 60.0 ml/min; GLUCOSE 131 mg/dL (70-105); POTASSIUM SERUM 3.3 mEq/L (3.5-5.1); SGOT 72 U/L (13-39); SGPT/ALT 79 U/L (7-52); SODIUM SERUM 140 mEq/L (136-145); TOTAL PROTEIN,SERUM 7.9 gm/dL (6.0-8.3)
--- NOTE | 2018-06-16 09:01 | Diagnostic Imaging Report ---
CT scan of the chest without intravenous contrast HISTORY: Hemoptysis pack Total DLP equals to 32 CTDI equals 6.5 Axial sections were obtained from a level above the clavicles down to level below the diaphragm. The exam is compared with the prior examination of January 08, 2018. The heart size is normal. No abnormal mediastinal masses. Evaluation of the vascular and hilar structures limited due to the absence of intravenous contrast. No definite abnormal masses. There is extensive abnormal interstitial changes noted within the right middle and lower lobe regions that exhibited a pronounced "honeycomb" appearance. Findings are associated with a somewhat reticulonodular appearance. Little change compared to prior study of January 08, 2018. Findings consistent with a chronic etiology. No focal processes seen within the left lung. No free pleural fluid. IMPRESSION: 1. Extensive chronic interstitial lung changes with a marked "honeycomb" appearance along with somewhat reticular nodular changes within the right middle and lower lobes. No change from January 08, 2018. Findings consistent with a chronic etiology. Clinical correlation needed. 2. Incidental punctate nonobstructing bilateral renal calculi
== END 2018-06-16 03:10 | disposition home or self-care (01) ==
LOC: ER 00:22
DX: R04.2 Hemoptysis (principal)
CPT/HCPCS: 99284; 96372; 71250; 36415; 85025; 81001; 81025 ×2; 80053; J0696